=== PATIENT | male | born 1980 | race Caucasian/White ===

== ENCOUNTER 2021-07-02 11:51 | Emergency (ER) | payer OTHER, SELFPAY ==
[2021-07-02 11:56] VITALS: BP 95/62; PULSE 67; RESP 16; TEMP 36.6; O2SAT 99; BMI 20.8
== END 2021-07-02 16:30 | disposition left against medical advice (07) ==
PROVIDERS: Emergency Provider Emergency Medicine
DX: R07.9 Chest pain, unspecified (principal)
CPT/HCPCS: 99281; 99282